=== PATIENT | female | born 1980 | race Caucasian/White ===

== ENCOUNTER 2025-02-03 07:25 | Observation (INO) ==
[2025-02-03] MEDS ORDERED: LIDOCAINE 1% LOCAL 20 ML VIAL INFIL PRN (08:47)
[2025-02-03] MEDS ORDERED: OXYTOCIN 30 UNITS/NSS 30 UNITS/500 ML BAG IV PRN (08:47)
[2025-02-03 08:58] LABS: Hematocrit (blood only) 37.2 % (37.0-47.0); Hemoglobin 13.0 g/dl (12.0-16.0); Mean Corpuscular Hemoglobin 29.7 pg (25.0-34.0); Mean Corpuscular Volume 85.1 fL (80.0-100.0); Platelet Count 254 K/uL (130-400); RDW Standard Deviation 46.8 fL (36.4-46.3); Red Blood Count 4.37 M/uL (4.20-5.40); White Blood Count 9.53 K/ul (4.8-10.8)
[2025-02-03] MEDS: DINOPROSTONE 10 MG INSERT PV ONE (09:11)
--- NOTE | 2025-02-03 09:22 | History & Physical Report ---
Date of Service February 03, 2025 Assessment & Plan (1) Encounter for induction of labor: Present on Admission?: Yes (2) AMA (advanced maternal age) multigravida 35+: Present on Admission?: Yes (3) Positive GBS test: Present on Admission?: Yes Plan Admit to L and D ADA diet X 3 then NPO/IV Fluids labs Cervidil PV for cervical ripening eventually AROM, Pitocin to augment labor PCN for GBS positive status pain meds including epidural as the pt desires Admission and Anticipated Discharge Date Admission Date: February 03, 2025 History of Present Illness Chief Complaint: induction fo labor for GDMA1 ( Diet controlled diabetes mellitus) Primary Care Provider: Eugenia Hoang DO Pt 44 yr old IUP at 39 weeks 3 days with LADARIUS: February 07/2025, came in today for induction of labor for GDMA1( diet controlled diabetes mellitus) and AMA. Pt denies regular uterine contractions, vaginal bleeding, leaking of lfuid per vagina etc. Reports good movement. Allergies Allergy/AdvReac Type Severity Reaction Status Date / Time No Known Allergies Allergy Verified 02/03/25 08:15 Home Medications Medication Instructions Recorded Confirmed Type fluticasone propionate 50 2 sprays intranasal BID PRN 01/26/19 02/03/25 History mcg/actuation nasal Congestion spray,suspension magnesium 250 mg tablet 500 mg PO DAILY 11/11/24 02/03/25 History sertraline 50 mg tablet 50 mg PO DAILY 11/11/24 02/03/25 History Past Med/Surg History Problem List (Updated 02/03/25 @ 09:20 by Nayeli Kaba MD) Positive GBS test AMA (advanced maternal age) multigravida 35+ Encounter for induction of labor Gallbladder polyp Encounter for pre-operative examination Hx of breast implants, bilateral Vitamin D deficiency Depression with anxiety Allergic rhinitis Medical History Common migraine Acid reflux Snoring Gallbladder polyp Depression with anxiety Cardiac murmur History of COVID-19 (07/2023) Surgical History H/O removal of cyst History of surgery (02/27/24) Hx laparoscopic cholecystectomy Hx of endoscopic retrograde cholangiopancreatography History of postoperative nausea and vomiting History of anesthesia reaction H/O rhinoplasty (2002) H/O wisdom tooth extraction (2000) H/O breast augmentation (2021) Family History Mother Migraine headache Major depression Anxiety Melanoma Unknown Epilepsy Grandmother Epilepsy Grandmother Breast cancer Stroke Social History Smoking Status: Never smoker Second Hand Exposure: No; Do You Dip or Chew Tobacco: No; Tobacco Cessation Education Requested by Patient: No Hx Alcohol Use: No Hx Substance Use: No Preferred Language: [place] Communication Ability: Effective Visual Impairment: No Limitations Hearing Ability: Normal Party Plan Sales Director Required: No Beliefs That Will Affect Care: None marital status: Current Living Situation: Significant Other Current Living Situation Comment: WITH SON current occupational status: employed current occupation: RN [employer] How many Children do You have: 1 Other Information That Helps Us Care for You: No Feels Safe at Home: Yes Safety Concerns: Feels Safe At This Time during the past year weight has: decreased > 10 lbs Dental Care, Regularly: Yes Seatbelt Use: always Sunscreen Use: Yes Assistive Devices: None Review of Systems Review of Systems: All systems reviewed & are unremarkable except as noted in HPI & below Constitutional: as per Subjective / HPI Respiratory: as per Subjective / HPI Cardiovascular: as per Subjective / HPI Physical Exam Constitutional: WD/WN, vitals as above Respiratory: normal respiratory effort, lungs clear to auscultation Cardiovascular: RRR, no murmur, no edema Gastrointestinal (Abdomen): normal bowel sounds, soft, nontender, no hepatosplenomegaly Skin: no rashes, warm and dry Psychiatric: A+Ox3, euthymic affect Genitourinary: no vaginal lesions, no adnexal mass Speculum/Bimanual Exam: normal appearance of the vagina OB Exam Abdomen: + fundal height (39 cm), + heart tones (140s, Good variabilty, positive accelerations ) and + vertex Manual OB Exam: + cervical dilation fingertip, + cervical effacement 50% and + station high OB Exam Monitor Tracing: + external FHT monitor used, + external uterine monitor used, + category I and + normal FHT variability Results & Data Results & Data Vital Signs (Past 12 Hours) Vital Signs Temp Pulse Resp BP 02/03/25 07:39 36.6 C 104 H 16 131/84 02/03/25 07:34 104 H 131/84
--- NOTE | 2025-02-04 06:00 | Obstetrical Progress Note ---
Date of Service February 04, 2025 Assessment & Plan (1) AMA (advanced maternal age) multigravida 35+: (2) Positive GBS test: (3) Encounter for induction of labor: Plan will start Pitocin as needed to augment labor pain meds including epidural eventually as the pt desires PCN for GBS positive status Admission and Anticipated Discharge Date Admission Date: February 03, 2025 Subjective pt feeling cramping but not regular uterine contractions. Cervidil removed at 9: 15 pm lastnight. pt had Cytotec x 2 doses PO. Physical Exam Constitutional: WD/WN, vitals as above Genitourinary: no vaginal lesions, no adnexal mass Manual OB Exam: + cervical dilation fingertip, + cervical effacement 50% and + station high OB Exam Monitor Tracing: + external FHT monitor used, + external uterine monitor used, + category I and + normal FHT variability Results & Data Vital Signs (Past 12 Hours) Vital Signs Temp Pulse Resp BP O2 Del Method 02/04/25 03:06 36.5 C 101 H 16 108/59 L 02/03/25 23:00 16 02/03/25 23:00 36.7 C 16 02/03/25 23:00 109 H 02/03/25 23:00 121/73 02/03/25 19:12 36.7 C 18 02/03/25 19:12 Room Air 02/03/25 19:09 18 02/03/25 19:09 36.7 C 18 02/03/25 19:09 91 H 02/03/25 19:09 122/73
--- NOTE | 2025-02-04 10:07 | Labor Progress Brief Note ---
Date of Service February 04, 2025 Subjective Reason For Note: Routine Evaluation Assessment & Plan Admission and Anticipated Discharge Date Admission Date: February 03, 2025 Physical Exam Genitourinary: Manual OB Exam: + cervical dilation fingertip, + cervical effacement 50% and + station high OB Exam Monitor Tracing: + external FHT monitor used, + external uterine monitor used, + category I and + normal FHT variability Will continue with cervical ripening. Cytotec 50 mcg orally every 4 hours. Results & Data Vital Signs (Past 12 Hours) Vital Signs Temp Pulse Resp BP 02/04/25 10:02 103 H 122/78 02/04/25 07:10 16 02/04/25 07:10 36.6 C 16 02/04/25 07:09 103 H 110/71 02/04/25 03:06 36.5 C 101 H 16 108/59 L 02/03/25 23:00 16 02/03/25 23:00 36.7 C 16 02/03/25 23:00 109 H 02/03/25 23:00 121/73
[2025-02-04] MEDS: LACTATED RINGER'S 1,000 ML IV PRN (10:21)
[2025-02-04] MEDS: miSOPROStoL 50 MCG TAB PO STA ×2 (10:30→14:57)
--- NOTE | 2025-02-04 14:43 | Labor Progress Brief Note ---
Date of Service February 04, 2025 Assessment & Plan Admission and Anticipated Discharge Date Admission Date: February 03, 2025 Physical Exam Genitourinary: Manual OB Exam: + cervical dilation fingertip, + cervical effacement 50% and + station high OB Exam Monitor Tracing: + external FHT monitor used, + external uterine monitor used, + category I and + normal FHT variability Results & Data Vital Signs (Past 12 Hours) Vital Signs Temp Pulse Resp BP 02/04/25 12:44 112 H 119/78 02/04/25 10:02 103 H 122/78 02/04/25 07:10 16 02/04/25 07:10 36.6 C 16 02/04/25 07:09 103 H 110/71 02/04/25 03:06 36.5 C 101 H 16 108/59 L
[2025-02-04] MEDS: ACETAMINOPHEN 325 MG TAB PO PRN (17:32)
[2025-02-04 20:35] VITALS: BP 103/59; PULSE 95
[2025-02-04 20:49] VITALS: RESP 16; TEMP 98.2
--- NOTE | 2025-02-04 21:55 | Labor Progress Brief Note ---
Date of Service February 04, 2025 Assessment & Plan Admission and Anticipated Discharge Date Admission Date: February 03, 2025 Physical Exam Genitourinary: Manual OB Exam: + cervical dilation fingertip, + cervical effacement 50% and + station high OB Exam Monitor Tracing: + external FHT monitor used, + external uterine monitor used, + category I and + normal FHT variability patient given option to continue with Arrington/Cervidil for ripening, rest overnight and re-start induction tomorrow morning or to stop induction and return Saturday morning for NST and schedule induction for Saturday. She does not want the Arrington and would prefer to go home and wait. FHT has been Cat 1 entire time she has been here. Will schedule NST and induction for Saturday. Results & Data Vital Signs (Past 12 Hours) Vital Signs Temp Pulse Resp BP 02/04/25 20:33 95 H 103/59 L 02/04/25 19:00 16 02/04/25 19:00 36.8 C 16 02/04/25 18:58 99 H 120/79 02/04/25 15:00 36.6 C 18 02/04/25 14:56 111 H 104/60 02/04/25 14:55 18 02/04/25 14:55 37.1 C 18 02/04/25 12:44 112 H 119/78 02/04/25 10:02 103 H 122/78
== END 2025-02-04 22:04 | disposition home or self-care (01) ==
LOC: INTOOBSV 07:25 → 4S1 07:25

== ENCOUNTER 2025-02-08 07:48 | Inpatient (IN) ==
[2025-02-08] MEDS ORDERED: OXYTOCIN 30 UNITS/NSS 30 UNITS/500 ML BAG IV PRN ×2 (09:40→22:26)
[2025-02-08] MEDS ORDERED: LIDOCAINE 1% LOCAL 20 ML VIAL INFIL PRN (09:40)
--- NOTE | 2025-02-08 09:45 | Obstetrical Progress Note ---
Date of Service February 08, 2025 Assessment & Plan (1) Gestational diabetes, diet controlled: Plan: Patient is a 44-year-old G2, P1 at immediately here for induction of labor for #1 advanced maternal age 2 gestational diabetes diet-controlled. Patient was at attempted induction of labor last week and was discharged home after no progression of labor. Today on arrival, she had no shortness of breath no chills no fever heart rate is category 1. Vaginal exam fingertip/ thick/ closed and posterior. Bedside ultrasound cephalic presentation Estimate weight by Miki's is 8 pounds Arrington catheter is placed through the cervix without difficulty. 40 cc of saline is used. Patient tolerated procedure well Will start Pitocin augmentation. Patient and spouse is agreeable to plan as above. Admission and Anticipated Discharge Date Admission Date: February 08, 2025 Results & Data Vital Signs (Past 12 Hours) Vital Signs Temp Pulse Resp BP 02/08/25 07:59 36.8 C 18 02/08/25 07:56 109 H 118/78 (1) Gestational diabetes, diet controlled Trimester: third trimester Qualified Code(s): O24.410 - Gestational diabetes mellitus in , diet controlled
[2025-02-08 10:13] LABS: Hematocrit (blood only) 38.1 % (37.0-47.0); Hemoglobin 13.1 g/dl (12.0-16.0); Mean Corpuscular Hemoglobin 29.1 pg (25.0-34.0); Mean Corpuscular Volume 84.7 fL (80.0-100.0); Platelet Count 266 K/uL (130-400); RDW Standard Deviation 46.3 fL (36.4-46.3); Red Blood Count 4.50 M/uL (4.20-5.40); White Blood Count 10.30 K/ul (4.8-10.8)
[2025-02-08] MEDS: LACTATED RINGER'S 1,000 ML IV PRN (10:20)
[2025-02-08] MEDS: OXYTOCIN 30 UNITS/NSS 30 UNITS/500 ML BAG IV PRN (10:21)
[2025-02-08] MEDS: PENICILLIN GK 6 MU in DEXTROSE 5% 250 ML IV STA (10:42)
--- NOTE | 2025-02-08 12:39 | Anesthesiology Consultation ---
Date of Service February 08, 2025 Assessment & Plan Chart Review Chart Review: Patient NOT seen in Pre Admission Testing and Acceptable Risk for Labor Epidural Consults Requested none ASA ASA2 Proposed Anesthesia Anesthesia Type: Labor Epidural Risk / Benefits Reviewed With: PT / POA / Parent / Guardian, Accepts Plan and Informed Consent Obtained History Height/Weight Height: 5 ft 4 in Weight: 89.358 kg Allergies Allergy/AdvReac Type Severity Reaction Status Date / Time No Known Allergies Allergy Verified 02/08/25 08:03 Medications Home Medications Medication Instructions Recorded Confirmed Last Taken fluticasone propionate 50 2 sprays intranasal BID PRN 01/26/19 02/08/25 02/07/25 mcg/actuation nasal Congestion spray,suspension magnesium 250 mg tablet 500 mg PO HS 11/11/24 02/08/25 02/08/25 sertraline 50 mg tablet 50 mg PO DAILY 11/11/24 02/08/25 02/07/25 vit no.95-ferrous 1 tab PO DAILY 02/08/25 02/08/25 02/07/25 fumarate 28 mg-folic acid 800 mcg tablet () Active Medications Generic Name Dose Route Start Last Admin Trade Name Freq PRN Reason Stop Dose Admin Oxytocin 30 units in 500 mls @ 8 mls/hr 02/08/25 09:40 02/08/25 12:00 Pitocin 30 Units/Nss IV 02/10/25 09:39 0.48 units/hr .Q24H PRN 8 mls/hr Labor Induction/Augmentation Titration Protocol 0.48 UNITS/HR Lactated Ringer's 1,000 mls @ 125 mls/hr 02/08/25 09:40 02/08/25 10:20 Lr IV 02/10/25 09:39 125 mls/hr .Q8H PRN Administration L&D Protocol Protocol NPO Date Last Intake of Fluids: 02/08/25 Time Last Intake of Fluids: 12:00 Date Last Intake of Solids: 02/08/25 Time Last Intake of Solids: 06:00 Past Medical History Medical History Common migraine Acid reflux Snoring Home sleep study negative Gallbladder polyp Depression with anxiety Cardiac murmur Reported per patient > "No issues" [facility] PCP wellness visit 11/11/23, "No murmur" History of COVID-19 (07/2023) mild, resolved Exercise / Class Metabolic Activity 1 > 8 Run/Swim/Ski/Tennis Past Family History Family History Mother Migraine headache Major depression Anxiety Melanoma Unknown Epilepsy Grandmother Epilepsy Grandmother Breast cancer Stroke Past Surgical History Surgical History H/O removal of cyst History of surgery (02/27/24) Aborted Laproscopic Cholecysectomy and Cholangiogram (Not Applicable) - Yehuda Henry, DO Hx laparoscopic cholecystectomy 02/29/2024 Hx of endoscopic retrograde cholangiopancreatography 02/28/24 History of postoperative nausea and vomiting History of anesthesia reaction Awareness during rhinoplasty H/O rhinoplasty (2002) H/O wisdom tooth extraction (2000) H/O breast augmentation (2021) 2021 Past Anesthesia History No Hx of Anesthesia Complications and No Family Hx of Anesthesia Complications History of PONV No Hx of PONV and No Hx of Motion Sickness Social History Smoking Status: Never smoker Do You Dip or Chew Tobacco: No Hx Alcohol Use: No Alcohol type: wine alcohol intake frequency: 3 or more drinks per day Hx Substance Use: No substance use type: does not use Review of Systems ROS Unobtainable: All systems reviewed & are unremarkable except as noted in HPI & below Physical Exam Vital Signs Last Vital Signs Temp 36.6 C 02/08/25 11:00 Pulse 107 H 02/08/25 12:34 Resp 20 02/08/25 11:00 BP 138/66 02/08/25 12:23 Pulse Ox 98 02/08/25 12:29 ENMT Mouth: no TMJ abnormality Thyromental Distance: > or= 3.5 Finger Breadths Mallampati Class: II Neck normal visual inspection and trachea midline; neck extension not limited Respiratory normal respiratory effort Auscultation: lungs clear to auscultation bilaterally Cardiovascular Rate/Rhythm: regular rate and regular rhythm Heart Sounds: no murmur Musculoskeletal Spine: normal cervical ROM Extremities: full ROM of extremities Neurologic moves all extremities Psychiatric Orientation: alert and oriented x 3 Testing Laboratory Results 02/08/25 09:48
[2025-02-08] MEDS ORDERED: LIDOCAINE 2% MPF LOCAL 5 ML VIAL EPI PRN (12:40)
[2025-02-08] MEDS ORDERED: SODIUM CHLORIDE 0.9% PF INJ 10 ML VIAL EPI PRN (12:40)
[2025-02-08] MEDS ORDERED: NALOXONE HCL 1 MG in SODIUM CHLORIDE 0.9% 1,000 ML IV PRN (12:40)
[2025-02-08] MEDS ORDERED: ROPIVACAINE 0.5% PF 5 MG/ML 20 ML VIAL EPI PRN (12:40)
[2025-02-08] MEDS ORDERED: NALBUPHINE HCL INJ 10 MG/ML AMP IV PRN (12:40)
[2025-02-08] MEDS ORDERED: diphenhydrAMINE 50 MG/ML VIAL IV PRN (12:40)
[2025-02-08] MEDS ORDERED: NALOXONE HCL 0.4 MG/1 ML VIAL/CARP IV PRN (12:40)
[2025-02-08] MEDS ORDERED: BUPIVACAINE 0.25% PF 30 ML VIAL EPI PRN (12:40)
[2025-02-08] MEDS: fentANYL 2 MCG/ML BUPIVacaine 0.125%-NSS 100ML BAG ONE (12:50)
[2025-02-08] MEDS: BUPIVACAINE 0.25% PF 30 ML VIAL ONE (12:50)
[2025-02-08] MEDS: LIDOCAINE 2%/EPINEPHRINE 1:200,000 20 ML PF ONE (12:53)
[2025-02-08] MEDS: SODIUM CHLORIDE 0.9% PF INJ 10 ML VIAL ONE (12:55)
[2025-02-08] MEDS: BUPIVACAINE 0.25% PF 30 ML VIAL EPI STA (13:08)
[2025-02-08] MEDS: SODIUM CHLORIDE 0.9% PF INJ 10 ML VIAL EPI STA (13:09)
[2025-02-08] MEDS: LIDOCAINE 2%/EPINEPHRINE 1:200,000 20 ML PF EPI STA (13:09)
[2025-02-08] MEDS: PENICILLIN GK 3 MU in DEXTROSE 5% 100 ML IV PRN (14:43)
--- NOTE | 2025-02-08 16:17 | Obstetrical Progress Note ---
Date of Service February 08, 2025 Assessment & Plan (1) Gestational diabetes, diet controlled: Plan: Pt doing well No complaints VE /1 with bulging membranes Pit; 14mu AROM-clear Anticipate VD Admission and Anticipated Discharge Date Admission Date: February 08, 2025 Results & Data Vital Signs (Past 12 Hours) Vital Signs Temp Pulse Resp BP Pulse Ox O2 Del Method 02/08/25 16:09 102 H 97 02/08/25 16:06 99 H 94 02/08/25 16:04 105 H 96 02/08/25 16:01 101 H 124/73 94 02/08/25 15:59 101 H 97 02/08/25 15:54 98 H 96 02/08/25 15:49 97 H 97 02/08/25 15:46 94 H 138/80 02/08/25 15:44 95 H 97 02/08/25 15:39 101 H 97 02/08/25 15:34 101 H 97 02/08/25 15:31 102 H 127/75 02/08/25 15:29 97 H 96 02/08/25 15:24 100 H 95 02/08/25 15:19 96 H 95 02/08/25 15:17 104 H 127/65 94 02/08/25 15:14 100 H 96 02/08/25 15:09 97 H 96 02/08/25 15:04 102 H 96 02/08/25 15:01 97 H 120/63 92 02/08/25 14:59 98 H 95 02/08/25 14:56 98 H 94 02/08/25 14:54 100 H 95 02/08/25 14:50 18 02/08/25 14:50 36.6 C 18 02/08/25 14:49 105 H 95 02/08/25 14:45 102 H 117/58 L 02/08/25 14:44 103 H 95 02/08/25 14:42 103 H 94 02/08/25 14:39 100 H 95 02/08/25 14:34 115 H 95 02/08/25 14:31 104 H 125/69 02/08/25 14:30 18 02/08/25 14:30 18 02/08/25 14:29 111 H 95 02/08/25 14:24 106 H 95 02/08/25 14:21 104 H 94 02/08/25 14:19 104 H 95 02/08/25 14:16 100 H 119/61 02/08/25 14:14 125 H 95 02/08/25 14:09 115 H 96 02/08/25 14:04 108 H 96 02/08/25 14:00 106 H 18 132/70 02/08/25 13:59 98 H 94 02/08/25 13:54 108 H 95 02/08/25 13:51 96 H 94 02/08/25 13:49 108 H 96 02/08/25 13:46 103 H 131/73 93 02/08/25 13:45 20 02/08/25 13:44 98 H 95 02/08/25 13:40 99 H 94 02/08/25 13:39 98 H 94 02/08/25 13:34 118 H 96 02/08/25 13:30 104 H 20 129/71 02/08/25 13:29 99 H 95 02/08/25 13:27 103 H 93 02/08/25 13:24 107 H 124/63 97 02/08/25 13:20 98 H 121/62 02/08/25 13:19 94 02/08/25 13:19 103 H 02/08/25 13:19 104 H 94 02/08/25 13:15 18 02/08/25 13:15 100 H 133/69 02/08/25 13:14 104 H 96 02/08/25 13:11 101 H 127/64 02/08/25 13:10 102 H 93 02/08/25 13:09 102 H 96 02/08/25 13:05 104 H 02/08/25 13:05 130/66 02/08/25 13:05 105 H 130/68 94 02/08/25 13:04 106 H 95 02/08/25 13:01 115 H 122/68 02/08/25 13:00 18 02/08/25 12:59 105 H 96 02/08/25 12:54 104 H 96 02/08/25 12:53 111 H 123/74 02/08/25 12:51 100 H 127/78 02/08/25 12:49 101 H 132/82 97 02/08/25 12:47 102 H 136/85 02/08/25 12:44 104 H 96 02/08/25 12:42 Room Air 02/08/25 12:39 117 H 97 02/08/25 12:34 107 H 97 02/08/25 12:29 99 H 98 02/08/25 12:23 109 H 138/66 02/08/25 12:20 106 H 97 02/08/25 12:15 108 H 96 02/08/25 12:10 105 H 97 02/08/25 12:05 109 H 95 02/08/25 11:24 100 H 133/80 02/08/25 11:00 36.6 C 02/08/25 11:00 20 02/08/25 11:00 36.6 C 20 02/08/25 10:22 120 H 117/81 02/08/25 07:59 36.8 C 18 02/08/25 07:56 109 H 118/78 (1) Gestational diabetes, diet controlled Trimester: third trimester Qualified Code(s): O24.410 - Gestational diabetes mellitus in , diet controlled
[2025-02-08] MEDS ORDERED: ONDANSETRON INJ 2 MG/ML 2 ML VIAL IV PRN (18:46)
[2025-02-08] MEDS: ONDANSETRON INJ 2 MG/ML 2 ML VIAL ONE (18:51)
[2025-02-08] MEDS: fentANYL 2 MCG/ML BUPIVacaine 0.125%-NSS 100ML BAG EPI PRN (19:15)
--- NOTE | 2025-02-08 19:35 | Obstetrical Progress Note ---
Date of Service February 08, 2025 Assessment & Plan (1) Gestational diabetes, diet controlled: Plan: Vaginal exam cervical; 10/100+1 station On Pitocin Patient doing well. heart rate category 1. Bleeding from right vaginal hematoma which was stabilized with Vicryl suture. scalp electrode placed patient will try and push and different positions Admission and Anticipated Discharge Date Admission Date: February 08, 2025 Results & Data Vital Signs (Past 12 Hours) Vital Signs Temp Pulse Resp BP Pulse Ox O2 Del Method 02/08/25 19:30 116 H 130/79 02/08/25 19:29 122 H 97 02/08/25 19:24 110 H 97 02/08/25 19:19 127 H 94 02/08/25 19:15 107 H 130/74 02/08/25 19:14 120 H 95 02/08/25 19:12 36.9 C 121 H 18 93 02/08/25 19:09 118 H 95 02/08/25 19:06 117 H 87 L 02/08/25 19:04 114 H 96 02/08/25 19:01 115 H 134/84 02/08/25 18:59 113 H 95 02/08/25 18:56 110 H 85 L 02/08/25 18:54 108 H 96 02/08/25 18:49 121 H 95 02/08/25 18:46 126 H 133/68 02/08/25 18:44 123 H 70 L 02/08/25 18:43 120 H 90 02/08/25 18:39 121 H 98 02/08/25 18:34 130 H 99 02/08/25 18:31 129 H 134/74 02/08/25 18:29 131 H 97 02/08/25 18:24 115 H 97 02/08/25 18:19 107 H 140/86 96 02/08/25 18:16 117 H 134/76 02/08/25 18:15 117 H 89 L 02/08/25 18:14 114 H 98 02/08/25 18:09 118 H 98 02/08/25 18:04 109 H 97 02/08/25 18:01 110 H 130/76 02/08/25 17:59 111 H 98 02/08/25 17:54 108 H 98 02/08/25 17:49 111 H 97 02/08/25 17:47 110 H 143/87 H 07/14/25 17:44 108 H 95 02/08/25 17:41 111 H 94 02/08/25 17:39 115 H 95 02/08/25 17:34 125 H 94 02/08/25 17:31 133 H 149/69 H 02/08/25 17:29 125 H 96 02/08/25 17:27 146 H 94 02/08/25 17:24 138 H 96 02/08/25 17:21 144 H 94 02/08/25 17:19 119 H 75 L 02/08/25 17:16 120 H 80 L 02/08/25 17:15 116 H 136/74 02/08/25 17:14 135 H 77 L 02/08/25 17:09 108 H 86 L 02/08/25 17:04 125 H 97 02/08/25 17:01 100 H 151/90 H 02/08/25 16:59 97 H 96 02/08/25 16:54 98 H 97 02/08/25 16:49 97 H 97 02/08/25 16:47 100 H 148/96 H 94 02/08/25 16:44 36.8 C 99 H 18 97 02/08/25 16:39 101 H 96 02/08/25 16:34 101 H 96 02/08/25 16:31 103 H 129/81 02/08/25 16:29 103 H 96 02/08/25 16:24 100 H 96 02/08/25 16:19 96 H 97 02/08/25 16:15 100 H 136/78 02/08/25 16:14 102 H 96 02/08/25 16:09 102 H 97 02/08/25 16:06 99 H 94 02/08/25 16:04 105 H 96 02/08/25 16:01 101 H 124/73 94 02/08/25 15:59 101 H 97 02/08/25 15:54 98 H 96 02/08/25 15:49 97 H 97 02/08/25 15:46 94 H 138/80 02/08/25 15:44 95 H 97 02/08/25 15:39 101 H 97 02/08/25 15:34 101 H 97 02/08/25 15:31 102 H 127/75 02/08/25 15:29 97 H 96 02/08/25 15:24 100 H 95 02/08/25 15:19 96 H 95 02/08/25 15:17 104 H 127/65 94 02/08/25 15:14 100 H 96 02/08/25 15:09 97 H 96 02/08/25 15:04 102 H 96 02/08/25 15:01 97 H 120/63 92 02/08/25 14:59 98 H 95 02/08/25 14:56 98 H 94 02/08/25 14:54 100 H 95 02/08/25 14:50 18 02/08/25 14:50 36.6 C 18 02/08/25 14:49 105 H 95 02/08/25 14:45 102 H 117/58 L 02/08/25 14:44 103 H 95 02/08/25 14:42 103 H 94 02/08/25 14:39 100 H 95 02/08/25 14:34 115 H 95 02/08/25 14:31 104 H 125/69 02/08/25 14:30 18 02/08/25 14:30 18 02/08/25 14:29 111 H 95 02/08/25 14:24 106 H 95 02/08/25 14:21 104 H 94 02/08/25 14:19 104 H 95 02/08/25 14:16 100 H 119/61 02/08/25 14:14 125 H 95 02/08/25 14:09 115 H 96 02/08/25 14:04 108 H 96 02/08/25 14:00 106 H 18 132/70 02/08/25 13:59 98 H 94 02/08/25 13:54 108 H 95 02/08/25 13:51 96 H 94 02/08/25 13:49 108 H 96 02/08/25 13:46 103 H 131/73 93 02/08/25 13:45 20 02/08/25 13:44 98 H 95 02/08/25 13:40 99 H 94 02/08/25 13:39 98 H 94 02/08/25 13:34 118 H 96 02/08/25 13:30 104 H 20 129/71 02/08/25 13:29 99 H 95 02/08/25 13:27 103 H 93 02/08/25 13:24 107 H 124/63 97 02/08/25 13:20 98 H 121/62 02/08/25 13:19 94 02/08/25 13:19 103 H 02/08/25 13:19 104 H 94 02/08/25 13:15 18 02/08/25 13:15 100 H 133/69 02/08/25 13:14 104 H 96 02/08/25 13:11 101 H 127/64 02/08/25 13:10 102 H 93 02/08/25 13:09 102 H 96 02/08/25 13:05 104 H 02/08/25 13:05 130/66 02/08/25 13:05 105 H 130/68 94 02/08/25 13:04 106 H 95 02/08/25 13:01 115 H 122/68 02/08/25 13:00 18 02/08/25 12:59 105 H 96 02/08/25 12:54 104 H 96 02/08/25 12:53 111 H 123/74 02/08/25 12:51 100 H 127/78 02/08/25 12:49 101 H 132/82 97 02/08/25 12:47 102 H 136/85 02/08/25 12:44 104 H 96 02/08/25 12:42 Room Air 02/08/25 12:39 117 H 97 02/08/25 12:34 107 H 97 02/08/25 12:29 99 H 98 02/08/25 12:23 109 H 138/66 02/08/25 12:20 106 H 97 02/08/25 12:15 108 H 96 02/08/25 12:10 105 H 97 02/08/25 12:05 109 H 95 02/08/25 11:24 100 H 133/80 02/08/25 11:00 36.6 C 02/08/25 11:00 20 02/08/25 11:00 36.6 C 20 02/08/25 10:22 120 H 117/81 02/08/25 07:59 36.8 C 18 02/08/25 07:56 109 H 118/78 (1) Gestational diabetes, diet controlled Trimester: third trimester Qualified Code(s): O24.410 - Gestational diabetes mellitus in , diet controlled
[2025-02-08] MEDS ORDERED: HYDROCORTISONE ACETATE 25 MG SUPP PR PRN (22:26)
--- NOTE | 2025-02-08 22:26 | Delivery Summary ---
Vaginal Delivery Summary Date of Service February 08, 2025 Vaginal Delivery Summary DELIVERY NOTE Patient delivered a live male in left occiput anterior presentation there was no nuchal cord which was easily reduced. Infant was delivered and placed on mother's abdomen. Delayed cord clamping was performed. Cord blood is obtained Cord gasses are obtained Meconium is absent Placenta is spontaneously delivered. Placenta appears grossly normal and has 3 vessel cord Inspection of the perineum showed right vaginal wall laceration and a periureteral tear laceration. Laceration is repaired in layers with 2-0 Vicryl i Rectal exam post repair showed good sphincter tone no sutures palpated in the rectum. Quantitative blood loss is 328 cc per Infants weight and scores are in the pediatric record Mother and baby are stable in in the recovery
[2025-02-09] MEDS: IBUPROFEN 600 MG TAB PO PRN (00:05)
[2025-02-09] MEDS: BENZOCAINE 20% SPRY 85 APPLN/85 GM CAN EXT PRN (00:05)
[2025-02-09] MEDS: ACETAMINOPHEN 325 MG TAB PO PRN (00:05)
[2025-02-09] MEDS: DIPHTHER/TETAN/PERTUS Vaccine (Tdap, Adol/Adult) 0.5mL IM ONE (00:06)
[2025-02-09] MEDS: NURSING L&D Epidural Breakthrough Pain Update ONE (00:09)
[2025-02-09] MEDS: METHYLERGONOVINE MALEATE 0.2 MG/ML AMP IM STA (00:51)
[2025-02-09 00:54] LABS: Base Excess Cord Arterial Bld -5.2 mEq/L (-9-1.8); Base Excess Cord Venous Blood -4.7 mEq/L (-7.7-1.9); CO2 Cord Arterial Blood 57 mmHg (39.1-73.5); Cord Venous Blood PO2 < 20 mmHg (14.1-43.3); HCO3 Cord Arterial Blood 23 mmol/L (19.7-28.5); O2 Saturation Cord Venous Bld < 60.0 % (<68); Oxygen Sat Cord Arterial Blood < 60.0 % (<60); PO2 Cord Arterial Blood < 20 mmHg (4.1-31.7); pH Cord Arterial Blood 7.22 (7.1-7.38)
[2025-02-09 06:32] LABS: Hematocrit (blood only) 33.7 % (37.0-47.0); Hemoglobin 11.6 g/dl (12.0-16.0); Mean Corpuscular Hemoglobin 29.4 pg (25.0-34.0); Mean Corpuscular Volume 85.5 fL (80.0-100.0); Platelet Count 245 K/uL (130-400); RDW Standard Deviation 46.4 fL (36.4-46.3); Red Blood Count 3.94 M/uL (4.20-5.40); White Blood Count 18.55 K/ul (4.8-10.8)
[2025-02-09] MEDS: DOCUSATE SODIUM 100 MG CAP PO SCH (08:29)
[2025-02-09] MEDS: PRENATAL VITAMIN 1 TAB PO SCH (08:29)
--- NOTE | 2025-02-09 08:33 | Anesthesia Procedure Note ---
Date of Service February 09, 2025 Anesthesia Post Epidural Note Vital Signs Vital Signs: Temp Pulse Resp BP Pulse Ox O2 Del Method 36.5 C 98 H 16 109/67 97 Room Air 02/09/25 07:32 02/09/25 07:32 02/09/25 07:32 02/09/25 07:32 02/09/25 07:32 02/09/25 07:32 Pain Intensity Lower Abdomen: Pain Intensity: 7 Perineal: Pain Intensity: 2 Notes Mental Status: alert / awake / arousable and participated in evaluation Nausea / Vomiting: adequately controlled Pain: adequately controlled Airway Patency, RR, SpO2: stable & adequate BP & HR: stable & adequate Hydration State: stable & adequate Neuraxial Anesthesia: was administered, sensory block is resolving and see Notes below Anesthetic Complications: no major complications apparent and Pt Satisfied with anesthetic care Epidural: Removed without complications and With tip intact Notes: pt c/o numbness of medial thigh and lower leg impacting her ability to walk. follows dermatomes of tibial and obturator nerve. pt can not life the left leg against gravity. Most likely related to the birthing process. nursing was reaching out to primary for neuro eval
--- NOTE | 2025-02-09 08:46 | Obstetrical Progress Note ---
Date of Service February 09, 2025 Assessment & Plan Admission and Anticipated Discharge Date Admission Date: February 08, 2025 Subjective Patient is seen and examined. She feels well, no complaints other than left leg/ thigh numbness and weakness. She needed assistance to walk to the BR. Could not put weight on it. No pain. Voiding without difficulty Tolerating regular diet with out N&V Bleeding is minimal No fever/ chills/ CP/ SOB/dizziness/ N&V/ Leg pain Bottle/ formula feeding without problems Vital Signs Height Weight Body Mass Index Blood Pressure Blood Pressure Position Temperature Temperature Source 5 ft 4 in 89.358 kg 33.7 109/67 Right Lateral 36.5 C Oral 02/08/25 12:39 02/08/25 12:39 02/08/25 07:59 02/09/25 07:32 02/09/25 07:32 02/09/25 07:32 02/09/25 07:32 Pulse Rate Respiratory Rate Pulse Oximetry 98 H 16 97 02/09/25 07:32 02/09/25 07:32 02/09/25 07:32 Lab Results 02/08/25 02/08/25 02/08/25 Range/Units 09:48 16:05 21:47 WBC 10.30 (4.8-10.8) K/ul RBC 4.50 (4.20-5.40) M/uL Hgb 13.1 (12.0-16.0) g/dl Hct 38.1 (37.0-47.0) % MCV 84.7 (80.0-100.0) fL MCH 29.1 (25.0-34.0) pg MCHC 34.4 (32.0-36.0) g/dL RDW Std Deviation 46.3 (36.4-46.3) fL RDW Coeff of Jose Rafael 15.0 H (11.5-14.5) % Plt Count 266 (130-400) K/uL MPV 10.8 (9.4-12.4) fL Cord ABG pH 7.22 (7.1-7.38) Cord ABG pCO2 57 (39.1-73.5) mmHg Cord ABG pO2 < 20 (4.1-31.7) mmHg Cord ABG HCO3 23 (19.7-28.5) mmol/L Cord ABG Base Excess -5.2 (-9-1.8) mEq/L Cord ABG O2 Sat < 60.0 (<60) % Cord VBG pH 7.27 (7.20-7.44) Cord VBG pCO2 49 (30.4-57.2) mmHg Cord VBG pO2 < 20 (14.1-43.3) mmHg Cord VBG HCO3 23 (18.4-26.8) mmol/L Cord VBG Base Excess -4.7 (-7.7-1.9) mEq/L Cord VBG O2 Sat < 60.0 (<68) % Blood Gas Comments GARCIA POC Glucose 114 H (70-99) mg/dl Treponema pallidum Ab Negative (Negative) 02/08/25 02/09/25 Range/Units 21:47 06:01 WBC 18.55 H (4.8-10.8) K/ul RBC 3.94 L (4.20-5.40) M/uL Hgb 11.6 L (12.0-16.0) g/dl Hct 33.7 L (37.0-47.0) % MCV 85.5 (80.0-100.0) fL MCH 29.4 (25.0-34.0) pg MCHC 34.4 (32.0-36.0) g/dL RDW Std Deviation 46.4 H (36.4-46.3) fL RDW Coeff of Jose Rafael 14.6 H (11.5-14.5) % Plt Count 245 (130-400) K/uL MPV 10.9 (9.4-12.4) fL Cord ABG pH (7.1-7.38) Cord ABG pCO2 (39.1-73.5) mmHg Cord ABG pO2 (4.1-31.7) mmHg Cord ABG HCO3 (19.7-28.5) mmol/L Cord ABG Base Excess (-9-1.8) mEq/L Cord ABG O2 Sat (<60) % Cord VBG pH (7.20-7.44) Cord VBG pCO2 (30.4-57.2) mmHg Cord VBG pO2 (14.1-43.3) mmHg Cord VBG HCO3 (18.4-26.8) mmol/L Cord VBG Base Excess (-7.7-1.9) mEq/L Cord VBG O2 Sat (<68) % Blood Gas Comments GARCIA POC Glucose (70-99) mg/dl Treponema pallidum Ab (Negative) PE: General: Alert, orientedx3, NAD Abd: soft, NT, fundus firm, below Umbilicus Perineum intact, Lochia rubra minimal Ext; NT, edema on dorsum of feet, Homans sign neg/ neg Decreased sensation and muscle strength on left thigh and leg, AP: 44 yo s/p , ppd# 1 VSS Afebrile doing well Left LE numbness and weakness since delivery, d/w anesthesiology who though it could be related to ischemic injury of obturator and tibial nerve, most likely pressure of head during 2nd stage of labor Plan to consult neurology Continue to monitor/ care All questions were answered Results & Data Vital Signs (Past 12 Hours) Vital Signs Temp Pulse Pulse Resp BP BP Pulse Ox 02/09/25 07:32 36.5 C 98 H 16 109/67 97 02/09/25 04:47 97 H 02/09/25 04:47 122/76 02/09/25 01:00 36.8 C 18 02/09/25 01:00 115 H 114/61 02/09/25 00:45 103 H 119/60 02/09/25 00:31 111 H 112/61 02/09/25 00:15 112 H 123/72 02/09/25 00:00 109 H 125/76 02/08/25 23:45 110 H 123/72 02/08/25 23:30 105 H 125/71 02/08/25 23:15 103 H 130/70 02/08/25 23:00 111 H 129/74 02/08/25 22:45 116 H 132/71 02/08/25 22:31 108 H 140/79 02/08/25 22:24 119 H 98 02/08/25 22:19 114 H 98 02/08/25 22:16 112 H 149/84 H 02/08/25 22:15 113 H 151/89 H 02/08/25 22:14 115 H 100 02/08/25 22:09 115 H 99 02/08/25 22:04 118 H 96 02/08/25 22:00 115 H 148/84 H 02/08/25 21:59 117 H 98 07/14/25 21:54 97 02/08/25 21:54 126 H 02/08/25 21:54 122 H 146/81 H 02/08/25 21:49 122 H 98 02/08/25 21:44 120 H 100 02/08/25 21:39 138 H 98 02/08/25 21:34 125 H 97 02/08/25 21:30 117 H 141/83 H 02/08/25 21:29 112 H 97 02/08/25 21:24 118 H 97 02/08/25 21:19 124 H 97 02/08/25 21:16 129 H 132/82 02/08/25 21:14 120 H 97 02/08/25 21:09 127 H 98 02/08/25 21:07 98 H 94 02/08/25 21:04 95 H 96 02/08/25 21:02 96 H 130/76 02/08/25 21:00 18 02/08/25 21:00 37.0 C 18 02/08/25 20:59 101 H 96 02/08/25 20:54 97 H 95 02/08/25 20:52 97 H 94 02/08/25 20:49 93 H 96 02/08/25 20:46 93 H 122/77 02/08/25 20:44 98 H 96 O2 Del Method 02/09/25 07:32 Room Air 02/09/25 04:47 02/09/25 04:47 02/09/25 01:00 02/09/25 01:00 02/09/25 00:45 02/09/25 00:31 02/09/25 00:15 02/09/25 00:00 02/08/25 23:45 02/08/25 23:30 02/08/25 23:15 02/08/25 23:00 02/08/25 22:45 02/08/25 22:31 02/08/25 22:24 02/08/25 22:19 02/08/25 22:16 02/08/25 22:15 02/08/25 22:14 02/08/25 22:09 02/08/25 22:04 02/08/25 22:00 02/08/25 21:59 02/08/25 21:54 02/08/25 21:54 02/08/25 21:54 02/08/25 21:49 02/08/25 21:44 02/08/25 21:39 02/08/25 21:34 02/08/25 21:30 02/08/25 21:29 02/08/25 21:24 02/08/25 21:19 02/08/25 21:16 02/08/25 21:14 02/08/25 21:09 02/08/25 21:07 02/08/25 21:04 02/08/25 21:02 02/08/25 21:00 02/08/25 21:00 02/08/25 20:59 02/08/25 20:54 02/08/25 20:52 02/08/25 20:49 02/08/25 20:46 02/08/25 20:44
[2025-02-09] MEDS: SERTRALINE HCL 50 MG TABLET PO SCH (09:25)
--- NOTE | 2025-02-09 12:19 | Magnetic Resonance Report ---
MRI OF THE THORACIC SPINE WITHOUT CONTRAST CLINICAL HISTORY: left lower extremity numbness. COMPARISON STUDY: No priors. TECHNIQUE: MRI of the thoracic spine is initiated. Sagittal T1 and T2-weighted sequences were obtaine d. The patient declined further imaging. IV contrast was not administered for this examination. FINDINGS: Vertebral body height and alignment are maintained throughout the thoracic spine. There are scattered hemangiomas, with the largest seen in the bodies of T4, T7, and T10. No destructive bony l esion is seen. The spinous processes appear intact. There is mild disc desiccation. The disc spaces a re maintained. Minimal posterior disc bulge is noted at T6-T7. There is no evidence of large disc her niation or central canal stenosis. The thoracic spinal cord is normal in morphology and signal intens ity. The conus medullaris terminates at the L1-L2 interspace. There is no MR evidence of high-grade n eural foraminal stenosis on these sagittal sequences. The paraspinous soft tissues are normal as imag ed. The postgravid uterus is enlarged and heterogeneous as seen on the center punch operator sequences. IMPRESSION: 1. Two sagittal sequences of the thoracic spine were obtained. The patient declined further imaging. 2. There is no evidence of large disc herniation, central canal stenosis, or neural foraminal narrowi ng on the acquired sequences. 3. No destructive bony process is seen. Electronically signed by: Brayden Lorenzo M.D. 02/09/2025 12:17 PM
[2025-02-09 12:48] VITALS: RESP 18
--- NOTE | 2025-02-09 13:37 | Neurology Consultation ---
Date of Consultation February 09, 2025 Assessment & Plan (1) Left leg weakness: Recommend MRI thoracic, lumbar and pelvis with and without contrast. Continue frequent neurological assessments Obtain stat CT brain without contrast for any acute neurological decline Continue to monitor/control blood pressure & blood glucose Continue to monitor telemetry closely Continue to monitor renal and hepatic function, keep euvolemic Ok from neurology perspective for VTE prophylaxis PT/OT/SLT to eval and treat Telehealth Consultation Telehealth Information Telehealth Information: I performed this visit using a real-time telehealth connection between my location and the patients location ([facility]). After connecting through interactive tele-video, patient was identified by name and date of and/or wristband check.Patient (or authorized healthcare new accounts banking representative) was informed that this was a telemedicine visit and it was being conducted confidentially over secure lines. My office door was closed and no one else was present in the room with me.Patient (or authorized healthcare new accounts banking representative) provided consent to proceed with the visit, expressed an understanding of privacy and security of the telemedicine visit, and gave permission to have a hospital new accounts banking representative in the room in order to assist with the visit and to conduct portions of the visit, as needed. I informed the p atient (or authorized healthcare new accounts banking representative) that I reviewed their record and presented the opportunity for them to ask any questions regarding the visit today. The patient agreed to participate. History of Present Illness Reason for Consultation: LLE weakness Requesting Physician: Dr Maguire Attending Physician: Toni Maguire MD History of Present Illness 44yo right handed female is status post vaginal delivery unfortunately having LLE weakness and paresthesia. I have performed televideo consultation. She is alert & oriented; able to answer all questions appropriately, name objects on televideo monitor, repeat phrases and perform complex/embedded commands without deficit. Neurological exam is non lateralizing/nonfocal in terms of motor strength and coordination. She has difficulty with ambulation. She reports medial thigh and lower extremity numbness. She demonstrates inability to extend LLE at knee and reduced dorsiflexion and plantar flexion. With help of RN at bedside she reportedly demonstrates equal strength in adduction. She reports difficulty tolerating MRI machine, she is asking for help with anxiety medication to undergo repeat attempt. Allergies Allergy/AdvReac Type Severity Reaction Status Date / Time No Known Allergies Allergy Verified 02/08/25 08:03 Home Medications Medication Instructions Recorded Confirmed Type fluticasone propionate 50 2 sprays intranasal BID PRN 01/26/19 02/08/25 History mcg/actuation nasal Congestion spray,suspension magnesium 250 mg tablet 500 mg PO HS 11/11/24 02/08/25 History sertraline 50 mg tablet 50 mg PO DAILY 11/11/24 02/08/25 History vit no.95-ferrous 1 tab PO DAILY 02/08/25 02/08/25 History fumarate 28 mg-folic acid 800 mcg tablet () Patient History Medical History Common migraine Acid reflux Snoring Home sleep study negative Gallbladder polyp Depression with anxiety Cardiac murmur Reported per patient > "No issues" [facility] PCP wellness visit 11/11/23, "No murmur" History of COVID-19 (07/2023) mild, resolved Surgical History H/O removal of cyst History of surgery (02/27/24) Aborted Laproscopic Cholecysectomy and Cholangiogram (Not Applicable) - Yehuda Henry, DO Hx laparoscopic cholecystectomy 02/29/2024 Hx of endoscopic retrograde cholangiopancreatography 02/28/24 History of postoperative nausea and vomiting History of anesthesia reaction Awareness during rhinoplasty H/O rhinoplasty (2002) H/O wisdom tooth extraction (2000) H/O breast augmentation (2021) 2021 Family History Mother Migraine headache Major depression Anxiety Melanoma Unknown Epilepsy Grandmother Epilepsy Grandmother Breast cancer Stroke Social History (Updated 02/08/25 @ 08:03 by Elvia John RN) Smoking Status: Never smoker Second Hand Exposure: No; Do You Dip or Chew Tobacco: No; Hx Alcohol Use: No Hx Substance Use: No Preferred Language: Belarusian Communication Ability: Effective Visual Impairment: No Limitations Hearing Ability: Normal Cutting Torch Operator Required: No Beliefs That Will Affect Care: None marital status: Current Living Situation: Significant Other Current Living Situation Comment: Lives with Bill FOB/SO and son, 1 cat current occupational status: employed current occupation: RN [employer] How many Children do You have: 1 Feels Safe at Home: Yes Safety Concerns: Feels Safe At This Time during the past year weight has: decreased > 10 lbs Dental Care, Regularly: Yes Seatbelt Use: always Sunscreen Use: Yes Assistive Devices: None Physical Exam Neurological Examination: Mental Status: Awake and alert. Oriented to person, place, and time. Fluency naming repetition and comprehension appear grossly intact. Affect remains appropriate. CN testing: I: Deferred II: Reports no changes in visual acuity III/IV/: No evidence of gaze preference, hippus, nystagmus or roving eye movements V: Facial sensation reportedly grossly intact to light touch bilaterally VII: Facial movements appear without evidence of asymmetry VIII: Hearing appears grossly intact to loud voice bilaterally IX/X: Palate is unable to be accurately visualized XI: Shoulder shrug appears symmetric/ grossly intact bilaterally XII: Tongue protrudes midline without evidence of biting Motor exam: LLE monoparesis, weak knee extension and plantar & dorsiflexion Tone: Unable to accurately assess via telemedicine Sensory: LLE monoparesthesia Coordination: No apparent evidence of dysmetria or dysdiadochokinesia Reflexes: Unable to accurately assess via telemedicine Gait: Deferred Results & Data Vital Signs (Past 12 Hours) Vital Signs Temp Pulse Pulse Pulse Resp BP BP 02/09/25 12:25 36.8 C 96 H 18 130/75 02/09/25 07:32 36.5 C 98 H 16 109/67 02/09/25 04:47 97 H 02/09/25 04:47 122/76 Pulse Ox O2 Del Method 02/09/25 12:25 97 Room Air 02/09/25 07:32 97 Room Air 02/09/25 04:47 02/09/25 04:47 Laboratory Results Abnormal lab results 02/08/25 02/09/25 Range/Units 16:05 06:01 WBC 18.55 H (4.8-10.8) K/ul RBC 3.94 L (4.20-5.40) M/uL Hgb 11.6 L (12.0-16.0) g/dl Hct 33.7 L (37.0-47.0) % RDW Std Deviation 46.4 H (36.4-46.3) fL RDW Coeff of Jose Rafael 14.6 H (11.5-14.5) % POC Glucose 114 H (70-99) mg/dl Diagnostic Findings Thoracic Spine MRI 02/09/25 09:01 MRI OF THE THORACIC SPINE WITHOUT CONTRAST CLINICAL HISTORY: left lower extremity numbness. COMPARISON STUDY: No priors. TECHNIQUE: MRI of the thoracic spine is initiated. Sagittal T1 and T2-weighted sequences were obtained. The patient declined further imaging. IV contrast was not administered for this examination. FINDINGS: Vertebral body height and alignment are maintained throughout the thoracic spine. There are scattered hemangiomas, with the largest seen in the bodies of T4, T7, and T10. No destructive bony lesion is seen. The spinous processes appear intact. There is mild disc desiccation. The disc spaces are maintained. Minimal posterior disc bulge is noted at T6-T7. There is no evidence of large disc herniation or central canal stenosis. The thoracic spinal cord is normal in morphology and signal intensity. The conus medullaris terminates at the L1-L2 interspace. There is no MR evidence of high-grade neural foraminal stenosis on these sagittal sequences. The paraspinous soft tissues are normal as imaged. The postgravid uterus is enlarged and heterogeneous as seen on the microfiche camera operator sequences. IMPRESSION: 1. Two sagittal sequences of the thoracic spine were obtained. The patient declined further imaging. 2. There is no evidence of large disc herniation, central canal stenosis, or neural foraminal narrowing on the acquired sequences. 3. No destructive bony process is seen. Electronically signed by: Brayden Lorenzo M.D. 02/09/2025 12:17 PM Medications Administered Home Medications Medication Instructions Recorded Confirmed Last Taken fluticasone propionate 50 2 sprays intranasal BID PRN 01/26/19 02/08/25 02/07/25 mcg/actuation nasal Congestion spray,suspension magnesium 250 mg tablet 500 mg PO HS 11/11/24 02/08/25 02/08/25 sertraline 50 mg tablet 50 mg PO DAILY 11/11/24 02/08/25 02/07/25 vit no.95-ferrous 1 tab PO DAILY 02/08/25 02/08/25 02/07/25 fumarate 28 mg-folic acid 800 mcg tablet () Active Medications Generic Name Dose Route Start Last Admin Trade Name Freq PRN Reason Stop Dose Admin Acetaminophen 650 mg 02/08/25 22:26 02/09/25 08:29 Acetaminophen 325 Mg Tab PO 03/10/25 22:25 650 mg Q6H PRN Administration Pain/NUGENT/Fever Benzocaine 1 appln 02/08/25 22:26 02/09/25 00:05 Benzocaine 20% Colstrip 85 Appln/85 Gm Can EXT 03/10/25 22:25 1 appln PRN PRN Administration Perineal Discomfort Docusate Sodium 100 mg 02/09/25 08:00 02/09/25 08:29 Docusate Sodium 100 Mg Cap PO 03/11/25 07:59 100 mg DAILY@08,21 MARCO Administration Oxytocin 30 units in 500 mls @ 999 mls/hr 02/08/25 09:40 02/08/25 22:16 Pitocin 30 Units/Nss IV 02/10/25 09:39 Infused .Q31M PRN Titration Labor Induction/Augmentation Protocol 59.94 UNITS/HR Lactated Ringer's 1,000 mls @ 125 mls/hr 02/08/25 09:40 02/08/25 22:16 Lr IV 02/10/25 09:39 Infused .Q8H PRN Infusion L&D Protocol Protocol Penicillin G Potassium 3 mu/ 106 mls @ 100 mls/hr 02/08/25 13:21 02/08/25 20:06 Dextrose IV 02/18/25 13:20 Infused Q4H PRN Infusion GBS(+) Until Delivery Ibuprofen 600 mg 02/08/25 22:26 02/09/25 12:37 Ibuprofen 600 Mg Tab PO 03/10/25 22:25 600 mg Q4H PRN Administration Pain/NUGENT/Cramping/Fever Prenat Multivit/Gold Wheel Blocker And Polisher/Iron/Folic Ac 1 tab 02/09/25 08:00 02/09/25 08:29 Vitamin 1 Tab PO 03/11/25 07:59 1 tab DAILY@08 MARCO Administration Sertraline HCl 50 mg 02/09/25 09:00 02/09/25 09:25 Sertraline Hcl 50 Mg Tablet PO 03/11/25 08:59 50 mg QAM MARCO Administration
--- NOTE | 2025-02-09 14:06 | Obstetrical Progress Note ---
Date of Service February 09, 2025 Assessment & Plan Admission and Anticipated Discharge Date Admission Date: February 08, 2025 Subjective Patient could not tolerate MRI earlier this morning, she got anxious and claustrophobic. She has seen neurology through telemedicine and Dr. Suarez still recommends MRI of thoracic, lumbar spines and pelvic with and without contrast. Patient is willing to try with p.o. Valium for anxiety, she is taking it before her surgery in the past. She declines Benadryl since she has side effects from it. I will place the order. continue to monitor closely, All questions were answered. Results & Data Vital Signs (Past 12 Hours) Vital Signs Temp Pulse Pulse Pulse Resp BP BP 02/09/25 12:25 36.8 C 96 H 18 130/75 02/09/25 07:32 36.5 C 98 H 16 109/67 02/09/25 04:47 97 H 02/09/25 04:47 122/76 Pulse Ox O2 Del Method 02/09/25 12:25 97 Room Air 02/09/25 07:32 97 Room Air 02/09/25 04:47 02/09/25 04:47
[2025-02-09] MEDS ORDERED: Nursing to Pharmacy Communication SCH (17:15)
[2025-02-09] MEDS: GADOBUTROL 65ML VIAL IV ONE (19:01)
--- NOTE | 2025-02-09 20:05 | Magnetic Resonance Report ---
MRI THORACIC SPINE WITH and WITHOUT CONTRAST TECHNIQUE: An MRI examination of the cervical spine was performed. The examination consists of sagittal T1-weighted, inversion recovery and T2 weighted images as well as axial T1-weighted, T2-weighted and gradient echo images. Postcontrast T1-weighted images were also obtained in axial and sagittal planes. IV CONTRAST: 8 mL of Gadavist was intravenously administered. INDICATION: Neck pain COMPARISON: None. FINDINGS: No significant vertebral body height loss. No significant spondylolisthesis. There is a small focus of the marrow edema signal and enhancement in the anterior aspect of C7 vertebral body. There is a probable intraosseous atypical hemangioma in T7 vertebral body. There is a mildly prominent disc osteophyte complex at T6-7 that results in mild mass effect being exerted upon the thoracic cord that is flattened. Very faint intramedullary T2/STIR hyperintensity is suggested within the thoracic cord at this level. Prominent disc osteophyte complex is also present at C6-7 resulting in similar mass effect upon the lower cervical cord without definite intermenstrual signal change. From the the spinal cord bulk is normal. No other suspicious enhancement identified. Visualized soft tissues of the neck, brain and thorax are unremarkable. IMPRESSION: Prominent disc osteophyte complex at T6-7 that results in mild compression of the thoracic cord that is flattened in anterior-posterior dimension. There is a faint intramedullary T2/STIR signal suggested at this level which may be due to an age-indeterminate myelomalacia. Additional disc osteophyte complex is present at C6-7 resulting in similar mass effect upon the lower cervical cord without definite signal abnormality. No suspicious enhancement is identified. Probable intraosseous hemangiomas as above. Electronically signed by Houston Bassett 02-09-2025 8:05 PM
[2025-02-09 20:15] VITALS: O2SAT 96
--- NOTE | 2025-02-09 20:33 | Magnetic Resonance Report ---
MRI LUMBAR SPINE WITH and WITHOUT CONTRAST TECHNIQUE: An MRI examination of the lumbar spine was performed. The examination consists of sagittal T1-weighted, inversion recovery and T2 weighted images as well as axial T1-weighted, T2-weighted and gradient echo images. Postcontrast T1-weighted images were also obtained in axial and sagittal planes. IV CONTRAST: 8 mL of Gadavist was intravenously administered. INDICATION: Back pain COMPARISON: None FINDINGS: No significant vertebral body height loss. No significant spondylolisthesis. Bone marrow signal is unremarkable. There are mild degenerative changes at L4-S1 with disc desiccation and annular fissures, mild disc herniations, bilateral facet hypertrophy and thickening of the ligamentum flavum. These changes results in mild bilateral neural foraminal narrowing at these levels. The spinal cord bulk is normal. No suspicious enhancement identified. IMPRESSION: No suspicious enhancement or acute process identified in the lumbar spine. Mild spondylosis at L4-S1 as above. Electronically signed by Houston Bassett 02-09-2025 8:16 PM
--- NOTE | 2025-02-09 21:49 | Magnetic Resonance Report ---
EXAM: MR pelvis wo/w con CLINICAL HISTORY: LEFT LE numbess and weakness post delivery. TECHNIQUE: MRI of the pelvis was performed with and without IV contrast in multiple sequences. 9 ml Gadavist intravenous contrast was admistered. COMPARISON: none. FINDINGS: Uterus: The uterus is bulky subinvoluted with surrounding pelvic and perineal edematous changes. The endometrial lining appears prominent (13 mm in thickness). Ovaries and Adnexa: No adnexal solid or cystic lesions. Bilateral parametrial congestion. Urinary bladder: The bladder appears normal with no intraluminal filling defects. Pelvic Lymph Nodes: No enlarged or suspicious pelvic lymph nodes identified. Additional Findings: Mild pelvic free fluid. The pelvic bones appear unremarkable. The lower lumbar spine shows maintained alignment. There is a small insignificant focal disc protrusion at L5/S1, otherwise the visualized lumbar discs are normal. No evidence of pelvic abscess. IMPRESSION: 1. Bulky subinvoluted uterus with surrounding pelvic and perineal edematous changes as well as mild pelvic free fluid; changes. 2. No sizable encysted collections/abscesses are identified. Electronically signed by Yuri Arechiga 02-09-2025 9:49 PM
--- NOTE | 2025-02-09 22:18 | Communication Note ---
Date of Service: February 09, 2025 MRIs of T- and L-spine reviewed. No abnormalities to account for symptoms. 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 Would have PT evaluate her. Weakness may resolve in the near-term, but if it persists, can get outpatient EMG for localization and prognosis.
[2025-02-10 00:09] VITALS: TEMP 97.9
[2025-02-10 06:04] LABS: Hematocrit (blood only) 30.4 % (37.0-47.0); Hemoglobin 10.3 g/dl (12.0-16.0); Immature Granulocytes # (auto) 0.09 K/uL (0.01-0.20); Immature Granulocytes % (auto) 0.8 %; Mean Corpuscular Hemoglobin 29.3 pg (25.0-34.0); Mean Corpuscular Volume 86.4 fL (80.0-100.0); Platelet Count 233 K/uL (130-400); RDW Standard Deviation 47.0 fL (36.4-46.3); Red Blood Count 3.52 M/uL (4.20-5.40); White Blood Count 10.78 K/ul (4.8-10.8)
[2025-02-10 08:09] VITALS: BP 115/78; PULSE 85
--- NOTE | 2025-02-10 08:35 | Obstetrical Progress Note ---
Date of Service February 10, 2025 Assessment & Plan (1) Gestational diabetes, diet controlled: Trimester: third trimester Qualified Code(s): O24.410 - Gestational diabetes mellitus in , diet controlled (2) Encounter for induction of labor: Plan discharged Subjective Ambulation: ambulating normally Voiding: no voiding problems Passing Gas:: Yes Diet Tolerance:: regular diet Lochia:: Small Feeding Type:: breast feeding Current Pain Level(1-10): 0 doing well Physical Exam Constitutional WD/WN, vitals as above Gastrointestinal (Abdomen) Inspection/Auscultation: abdomen normal to inspection Musculoskeletal Extremities: extremities normal to inspection Skin no rashes, warm and dry Neurologic patellar DTR's 2+ bilat, sensation intact Psychiatric A+Ox3, euthymic affect Results & Data Vital Signs (Past 12 Hours) Vital Signs Temp Pulse Resp BP Pulse Ox O2 Del Method 02/10/25 07:45 36.6 C 85 18 115/78 96 Room Air 02/10/25 00:07 36.6 C 94 H 18 129/81 96 Room Air Laboratory Results Laboratory Results - last 72 hr 02/08/25 02/08/25 02/08/25 09:48 16:05 21:47 WBC 10.30 RBC 4.50 Hgb 13.1 Hct 38.1 MCV 84.7 MCH 29.1 MCHC 34.4 RDW Std Deviation 46.3 RDW Coeff of Jose Rafael 15.0 H Plt Count 266 MPV 10.8 Immature Gran % (Auto) Neut % (Auto) Lymph % (Auto) [place] % (Auto) Eos % (Auto) Baso % (Auto) Neut # (Auto) Lymph # (Auto) [place] # (Auto) Eos # (Auto) Baso # (Auto) Immature Gran # (Auto) Cord ABG pH 7.22 Cord ABG pCO2 57 Cord ABG pO2 < 20 Cord ABG HCO3 23 Cord ABG Base Excess -5.2 Cord ABG O2 Sat < 60.0 Cord VBG pH 7.27 Cord VBG pCO2 49 Cord VBG pO2 < 20 Cord VBG HCO3 23 Cord VBG Base Excess -4.7 Cord VBG O2 Sat < 60.0 Blood Gas Comments GARCIA POC Glucose 114 H Treponema pallidum Ab Negative 02/08/25 02/09/25 02/10/25 21:47 06:01 05:40 WBC 18.55 H 10.78 RBC 3.94 L 3.52 L Hgb 11.6 L 10.3 L Hct 33.7 L 30.4 L MCV 85.5 86.4 MCH 29.4 29.3 MCHC 34.4 33.9 RDW Std Deviation 46.4 H 47.0 H RDW Coeff of Jose Rafael 14.6 H 14.9 H Plt Count 245 233 MPV 10.9 10.7 Immature Gran % (Auto) 0.8 Neut % (Auto) 69.4 Lymph % (Auto) 18.0 [place] % (Auto) 7.1 Eos % (Auto) 4.3 Baso % (Auto) 0.4 Neut # (Auto) 7.48 H Lymph # (Auto) 1.94 [place] # (Auto) 0.77 H Eos # (Auto) 0.46 Baso # (Auto) 0.04 Immature Gran # (Auto) 0.09 Cord ABG pH Cord ABG pCO2 Cord ABG pO2 Cord ABG HCO3 Cord ABG Base Excess Cord ABG O2 Sat Cord VBG pH Cord VBG pCO2 Cord VBG pO2 Cord VBG HCO3 Cord VBG Base Excess Cord VBG O2 Sat Blood Gas Comments GARCIA POC Glucose Treponema pallidum Ab
--- NOTE | 2025-02-10 14:05 | History & Physical Report ---
Date of Service February 10, 2025 Assessment & Plan (1) Left leg weakness: Plan: PT as outpatient will need walker (2) Gestational diabetes, diet controlled: (3) AMA (advanced maternal age) multigravida 35+: Plan discharged home Admission and Anticipated Discharge Date Admission Date: February 08, 2025 History of Present Illness Chief Complaint: induction of labor for AMA and GDM diet controlled Primary Care Provider: Eugenia Hoang, DO 44 F [id number] s/p 02/08/25 with left leg numbness following delivery. MRI was negative. Patient will be seen as an outpatient for PT and management. Allergies Allergy/AdvReac Type Severity Reaction Status Date / Time No Known Allergies Allergy Verified 02/08/25 08:03 Home Medications Medication Instructions Recorded Confirmed Type fluticasone propionate 50 2 sprays intranasal BID PRN 01/26/19 02/08/25 History mcg/actuation nasal Congestion spray,suspension magnesium 250 mg tablet 500 mg PO HS 11/11/24 02/08/25 History sertraline 50 mg tablet 50 mg PO DAILY 11/11/24 02/08/25 History vit no.95-ferrous 1 tab PO DAILY 02/08/25 02/08/25 History fumarate 28 mg-folic acid 800 mcg tablet () ibuprofen 600 mg tablet 600 mg PO Q6H PRN pain #30 tabs 02/10/25 Rx Patient History Medical History Common migraine Acid reflux Snoring Home sleep study negative Gallbladder polyp Depression with anxiety Cardiac murmur Reported per patient > "No issues" [facility] PCP wellness visit 11/11/23, "No murmur" History of COVID-19 (07/2023) mild, resolved Surgical History H/O removal of cyst History of surgery (02/27/24) Aborted Laproscopic Cholecysectomy and Cholangiogram (Not Applicable) - Yehuda Henry, DO Hx laparoscopic cholecystectomy 02/29/2024 Hx of endoscopic retrograde cholangiopancreatography 02/28/24 History of postoperative nausea and vomiting History of anesthesia reaction Awareness during rhinoplasty H/O rhinoplasty (2002) H/O wisdom tooth extraction (2000) H/O breast augmentation (2021) 2021 Family History Mother Migraine headache Major depression Anxiety Melanoma Unknown Epilepsy Grandmother Epilepsy Grandmother Breast cancer Stroke Social History Smoking Status: Never smoker Second Hand Exposure: No; Do You Dip or Chew Tobacco: No; Hx Alcohol Use: No Hx Substance Use: No Preferred Language: Sammarinese Communication Ability: Effective Visual Impairment: No Limitations Hearing Ability: Normal Post Anesthesia Care Unit Nurse Required: No Beliefs That Will Affect Care: None marital status: Current Living Situation: Significant Other Current Living Situation Comment: Lives with Bill FOB/SO and son, 1 cat current occupational status: employed current occupation: RN [employer] How many Children do You have: 1 Feels Safe at Home: Yes Safety Concerns: Feels Safe At This Time during the past year weight has: decreased > 10 lbs Dental Care, Regularly: Yes Seatbelt Use: always Sunscreen Use: Yes Assistive Devices: None OB History x2 GUARD RANGE History neg Review of Systems All systems reviewed & are unremarkable except as noted in HPI & below Physical Exam Constitutional: WD/WN, vitals as above Eyes: PERRL, conjunctivae normal, anicteric sclerae Respiratory: normal respiratory effort Cardiovascular: Rate/Rhythm: regular rate and regular rhythm Gastrointestinal (Abdomen): Inspection/Auscultation: abdomen normal to inspection fundus is firm below U adbomen is soft and non-tender Musculoskeletal: Extremities: + lower leg abnormality lower extremity with neuropathy Skin: no rashes, warm and dry Neurologic: Gait: + gait assisted Psychiatric: A+Ox3, euthymic affect Results & Data Vital Signs (Past 12 Hours) Vital Signs Temp Pulse Resp BP Pulse Ox O2 Del Method 02/10/25 07:45 36.6 C 85 18 115/78 96 Room Air Laboratory Results Laboratory Results - last 72 hr 02/08/25 02/08/25 02/08/25 09:48 16:05 21:47 WBC 10.30 RBC 4.50 Hgb 13.1 Hct 38.1 MCV 84.7 MCH 29.1 MCHC 34.4 RDW Std Deviation 46.3 RDW Coeff of Jose Rafael 15.0 H Plt Count 266 MPV 10.8 Immature Gran % (Auto) Neut % (Auto) Lymph % (Auto) [place] % (Auto) Eos % (Auto) Baso % (Auto) Neut # (Auto) Lymph # (Auto) [place] # (Auto) Eos # (Auto) Baso # (Auto) Immature Gran # (Auto) Cord ABG pH 7.22 Cord ABG pCO2 57 Cord ABG pO2 < 20 Cord ABG HCO3 23 Cord ABG Base Excess -5.2 Cord ABG O2 Sat < 60.0 Cord VBG pH 7.27 Cord VBG pCO2 49 Cord VBG pO2 < 20 Cord VBG HCO3 23 Cord VBG Base Excess -4.7 Cord VBG O2 Sat < 60.0 Blood Gas Comments GARCIA POC Glucose 114 H Treponema pallidum Ab Negative 02/08/25 02/09/25 02/10/25 21:47 06:01 05:40 WBC 18.55 H 10.78 RBC 3.94 L 3.52 L Hgb 11.6 L 10.3 L Hct 33.7 L 30.4 L MCV 85.5 86.4 MCH 29.4 29.3 MCHC 34.4 33.9 RDW Std Deviation 46.4 H 47.0 H RDW Coeff of Jose Rafael 14.6 H 14.9 H Plt Count 245 233 MPV 10.9 10.7 Immature Gran % (Auto) 0.8 Neut % (Auto) 69.4 Lymph % (Auto) 18.0 [place] % (Auto) 7.1 Eos % (Auto) 4.3 Baso % (Auto) 0.4 Neut # (Auto) 7.48 H Lymph # (Auto) 1.94 [place] # (Auto) 0.77 H Eos # (Auto) 0.46 Baso # (Auto) 0.04 Immature Gran # (Auto) 0.09 Cord ABG pH Cord ABG pCO2 Cord ABG pO2 Cord ABG HCO3 Cord ABG Base Excess Cord ABG O2 Sat Cord VBG pH Cord VBG pCO2 Cord VBG pO2 Cord VBG HCO3 Cord VBG Base Excess Cord VBG O2 Sat Blood Gas Comments GARCIA POC Glucose Treponema pallidum Ab (2) Gestational diabetes, diet controlled Trimester: third trimester Qualified Code(s): O24.410 - Gestational diabetes mellitus in , diet controlled (3) AMA (advanced maternal age) multigravida 35+ Trimester: third trimester Qualified Code(s): O09.523 - Supervision of elderly multigravida, third trimester
--- NOTE | 2025-02-15 13:04 | Coding Query ---
CODING QUERY To promote full compliance with coding requirements relating to patient care, provider participation is requested in all cases of product scientist uncertainty. Please assist us with the question(s) below: Coding Question(s): Please indicate below weeks of gestation on day of admission. Thank you. Physician's Response(s): 39 Thank you Keri Oakes Principal Diagnosis: "that condition established after study, to be chiefly responsible for occasioning the admission of the patient to the hospital for care." Co-Existing Principal Diagnosis: "when two or more diagnoses equally meet the criteria for principal diagnosis as determined by the circumstances of admission, diagnostic work up, and/or therapy provided, and the Alphabetic Index, Tabular List, or another coding guideline does not provide sequencing direction, any one of the diagnoses may be sequenced first." "When the physician has documented what appears to be a current diagnosis in the body of the record, but has not included the diagnosis in the final diagnostic statement, the physician should be asked whether the diagnosis should be added." (Source [facility]oding [facility] 2 QTR90. p3-4) [facility]
== END 2025-02-10 16:00 | disposition home or self-care (01) | DRG 768 ==
LOC: 4S1 07:48 → 4E2 02-09 05:23